=== PATIENT | female | born 1985 | race Caucasian/White ===

== ENCOUNTER → 2023-06-01 13:40 | Outpatient (CLI) | payer BC, SELFPAY ==
--- NOTE | ~2023-06-01 | MR_ITS ---
EXAMINATION: MR foot LT wo con DATE: 06/01/2023 14:28 INDICATION: Localized swelling, mass or lump at the forefoot. TECHNIQUE: Magnetic resonance imaging (MRI) of the left fore/mid foot was performed without intraveno us contrast. Sequences included sagittal T1-weighted FSE, sagittal fluid sensitive FSE STIR, coronal PD-weighted FS FSE, coronal T1-weighted FSE, axial PD-weighted FS FSE, and axial PD-weighted FSE. COMPARISON: None FINDINGS: Bone alignment is normal. Bone marrow signal is normal throughout with no fracture or pathologic haseeb ow is process. Mild osteoarthritis at the first metatarsophalangeal joint and a few tarsal metatarsal and interphalangeal joints. The flexor and extensor tendons are normal. Lisfranc ligament complex an d the collateral ligament complex at the metatarsophalangeal and interphalangeal joints are normal. T here is a T1 isointense lesion mildly hyperintense muscle and PD-weighted imaging position between th e heads of the third and fourth metatarsals. This measures approximately 1.3 cm dorsal plantar, 1.2 c m proximal to distal and 5 mm medial to lateral. Location and constellation of imaging features would be most consistent with a Siddiqui's neuroma. No joint effusions, Lynnette synovitis or other abnormal flu id collections. IMPRESSION: 1. 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 Reviewed, dictated and finalized at location L. IMPRESSION: 1. 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
== END ==
PROVIDERS: PCP Podiatrist Foot & Ankle Surgery; Visit Provider Podiatrist Foot & Ankle Surgery
DX: R22.42 Localized swelling, mass and lump, left lower limb (principal); G57.62 Lesion of plantar nerve, left lower limb
CPT/HCPCS: 73718

== ENCOUNTER → 2023-06-01 13:41 | Outpatient (CLI) | payer BC, SELFPAY ==
--- NOTE | ~2023-06-01 | CT_ITS ---
EXAMINATION: CT sinus wo con DATE: 06/01/2023 14:09 INDICATION: Chronic sinusitis, unspecified. TECHNIQUE: Computed tomography (CT) of the paranasal sinuses was performed without intravenous contra st. Iterative reconstruction technique was employed. The dose-length product was 241.08 mGy-cm. COMPARISON: None FINDINGS: There is mild mucosal thickening in right frontal sinus. There is mucosal thickening in the ethmoid sinuses, right worse than left. There is mild mucosal thickening in left sphenoid sinus and left maxillary sinus. There is extensive mucosal thickening in right maxillary sinus. There is mild l eftward deviation of the nasal septum. Left ostiomeatal unit is patent. Right ostiomeatal unit is occ luded at the hiatus semilunaris and the infundibulum. IMPRESSION: 1. Mucosal thickening in the paranasal sinuses with occlusion of right ostiomeatal unit. Reviewed, dictated and finalized at location A. IMPRESSION: 1. Mucosal thickening in the paranasal sinuses with occlusion of right ostiomea sherin unit.
== END ==
PROVIDERS: PCP Otolaryngology; Visit Provider Otolaryngology
DX: J32.9 Chronic sinusitis, unspecified (principal)
CPT/HCPCS: 70486

== ENCOUNTER 2024-10-11 14:31 | Outpatient (CLI) | payer BC, SELFPAY ==
--- NOTE | 2024-10-12 08:25 | WPDPFTINT ---
PFT Procedure Performed PFT Procedure Performed Spirometry with Pre/Post Bronchodilator Plethysmography (Lung Vol) Diffusing Cap (DLCO) Flow Vol Loop PFT Interpretation This is a pulmonary function test with pre and post-bronchodilator spirometry, plethysmography and diffusing capacity. The test was performed and results interpreted in accordance with the 2019 and 2005 ATS/ERS Task Force guidelines respectively using the Global Lung Function Initiative-2012 reference equations. Patient demonstrated good effort and cooperation. Reproducibility criteria were met. The quality of the pre bronchodilator spirometry maneuver was Grade A and post bronchodilator spirometry maneuver was Grade A. Findings: Spirometry: The contour the inspiratory and expiratory flow tracing are normal. The pre bronchodilator FVC is 4.59 L, 115% predicted. The pre bronchodilator FEV1 is 3.56 L, 108% predicted. The pre bronchodilator FEV1: FVC ratio 77%. The post bronchodilator FVC is 4.48 L, representing a 2% decrease. The post bronchodilator FEV1 is 3.66 L, representing a 3% increase. The post bronchodilator FEV1: FVC ratio is 82%. Plethysmography: The total lung capacity is 6.43 L, 120% predicted. The functional residual capacity is 3.35 L, 112% predicted. The residual volume is 1.84 L, 112% predicted. Diffusing capacity: The diffusing capacity unadjusted for hemoglobin and carboxyhemoglobin is 24.6, 99% predicted. The diffusing capacity adjusted for alveolar volume is 4.48, 95% predicted. Impression: The spirometry is normal without evidence of an obstructive abnormality. There is no significant improvement after inhaling a single dose of albuterol. The lung volumes are normal. The diffusing capacity is normal. There are no prior studies for comparison
== END 2024-10-11 14:32 | disposition home or self-care (01) ==
PROVIDERS: PCP Family Medicine; Visit Provider Physician Assistant Medical
DX: R05.3 Chronic cough (principal)
CPT/HCPCS: 94060; 94726; 94729

== ENCOUNTER 2025-08-15 16:15 | Outpatient (CLI) | payer BC, SELFPAY ==
--- NOTE | ~2025-08-15 | XR_ITS ---
EXAMINATION: XR chest 2V, 08/15/2025 10:23 CDT HISTORY: Chronic sinusitis; COUGH CP x1 WK COMPARISON: No comparisons available. Technique: 2 views obtained. Findings: The lungs are clear, no effusion. No pneumothorax. Heart is normal size. Mediastinal and hilar contours are within normal limits. Bony thorax no acute abnormality. Impression: No acute cardiopulmonary abnormality. Reviewed, dictated and finalized at location P. Impression: No acute cardiopulmonary abnormality.
== END 2025-08-15 16:16 | disposition home or self-care (01) ==
LOC: MICIMG 16:16
PROVIDERS: PCP Family Medicine; Visit Provider Nurse Practitioner Family
DX: J32.9 Chronic sinusitis, unspecified (principal); J45.909 Unspecified asthma, uncomplicated
CPT/HCPCS: 71046